=== PATIENT | male | born 1985 | race Caucasian/White ===

== ENCOUNTER 2019-10-04 08:04 | Emergency (ER) | payer OTHER ==
[2019-10-04] MEDS ORDERED: Sodium Chloride 0.9% 1,000 ML IV ONE (08:32)
[2019-10-04] MEDS ORDERED: Famotidine 20 MG/2 ML SDV IVPUSH ONE (08:34)
--- NOTE | 2019-10-04 09:08 | EDM.PDOC ---
ED HPI GENERAL MEDICAL PROBLEM - General Chief Complaint: Abdominal Pain Stated Complaint: ABDOMINAL PAIN Time Seen by Provider: 10/04/19 08:18 - History of Present Illness INITIAL COMMENTS - FREE TEXT/NARRATIVE: Generalized abdominal pain x3 days no bowel movement x3 days seen at [facility] and given Protonix patient with increased discomfort and at times radiating to the lower abdomen here for further evaluation, denies any prior surgical history denies any chronic medical condition. Patient admits to moderate alcohol intake. Denies tobacco use or drug use. No history of constipation in the past or history of peptic ulcer disease. Patient does not take any medication chronically. Denies any fever chills shortness of breath chest pain or cough. RUQ Pain Score (Numeric/FACES): 6 - Related Data Allergies Allergy/AdvReac Type Severity Reaction Status Date / Time amoxicillin Allergy Hives Verified 10/04/19 08:21 Home Meds: Home Meds Pantoprazole [ProTONIX] 40 mg PO DAILY 10/04/19 [History] Polyethylene Glycol 3350 [Miralax] 17 gm PO DAILY 7 Days #7 powd.pack 10/04/19 [ Rx] Past Medical History HEENT History: Reports: None Cardiovascular History: Reports: None Respiratory History: Reports: None Gastrointestinal History: Reports: None Genitourinary History: Reports: None Musculoskeletal History: Reports: None Neurological History: Reports: None Psychiatric History: Reports: None Endocrine/Metabolic History: Reports: None Hematologic History: Reports: None Immunologic History: Reports: None Oncologic (Cancer) History: Reports: None Dermatologic History: Reports: None - Infectious Disease History Infectious Disease History: Reports: None - Past Surgical History Head Surgeries/Procedures: Reports: None HEENT Surgical History: Reports: Eye Surgery Cardiovascular Surgical History: Reports: None Respiratory Surgical History: Reports: None GI Surgical History: Reports: None Male Surgical History: Reports: None Endocrine Surgical History: Reports: None Neurological Surgical History: Reports: None Musculoskeletal Surgical History: Reports: None Oncologic Surgical History: Reports: None Dermatological Surgical History: Reports: None Social & Family History - Family History Family Medical History: Noncontributory - Tobacco Use Smoking Status *Q: Never Smoker Second Hand Smoke Exposure: No - Caffeine Use Caffeine Use: Reports: None - Alcohol Use Days Per Week of Alcohol Use: 7 Number of Drinks Per Day: 4 Total Drinks Per Week: 28 - Recreational Drug Use Recreational Drug Use: Yes Recreational Drug Type: Reports: Cocaine, Marijuana/Hashish ED ROS GENERAL - Review of Systems Review Of Systems: See Below Constitutional: Reports: No Symptoms HEENT: Reports: No Symptoms Respiratory: Reports: No Symptoms Cardiovascular: Reports: No Symptoms GI/Abdominal: Reports: Abdominal Pain, Constipation, Distension, Nausea Musculoskeletal: Reports: No Symptoms Skin: Reports: No Symptoms Psychiatric: Reports: No Symptoms Hematologic/Lymphatic: Reports: No Symptoms Immunologic: Reports: No Symptoms ED EXAM, GI/ABD - Physical Exam Exam: See Below Exam Limited By: No Limitations General Appearance: Alert, WD/WN, No Apparent Distress Eyes: Bilateral: Normal Appearance, EOMI Ears: Normal External Exam, Normal Canal, Hearing Grossly Normal, Normal TMs Nose: Normal Inspection, Normal Mucosa, No Blood Throat/Mouth: Normal Inspection, Normal Lips, Normal Teeth, Normal Gums, Normal Oropharynx, Normal Voice, No Airway Compromise Head: Atraumatic, Normocephalic Neck: Normal Inspection, Supple, Non-Tender, Full Range of Motion Respiratory/Chest: No Respiratory Distress, Lungs Clear, Normal Breath Sounds Cardiovascular: Normal Peripheral Pulses, Regular Rate, Rhythm, No Edema, No Gallop, No JVD, No Murmur, No Rub GI/Abdominal Exam: Normal Bowel Sounds, Soft, Distended, Other (Mild tenderness right lower quadrant with no guarding rebound. No peritoneal sign. Green sign ). No: Guarding, Rigid Back Exam: Normal Inspection, Full Range of Motion, NT Extremities: Normal Inspection, Normal Range of Motion, Non-Tender, Normal Capillary Refill, No Pedal Edema Psychiatric: Normal Affect, Normal Mood Skin Exam: Warm, Dry, Intact, Normal Color, No Rash Lymphatic: No Adenopathy Course - Vital Signs Last Recorded V/S: Last Vital Signs Temp 96.8 F 10/04/19 08:21 Pulse 97 10/04/19 08:21 Resp 18 10/04/19 08:21 BP 129/85 10/04/19 08:21 Pulse Ox 95 10/04/19 08:21 - Orders/Labs/Meds Labs: Laboratory Tests 10/04/19 10/04/19 10/04/19 Range/Units 08:55 08:55 08:55 WBC 5.02 (4.0-11.0) K/uL RBC 4.88 (4.50-5.90) M/uL Hgb 16.5 (13.0-17.0) g/dL Hct 45.0 (38.0-50.0) % MCV 92.2 (80.0-98.0) fL MCH 33.8 H (27.0-32.0) pg MCHC 36.7 (31.0-37.0) g/dL RDW Std Deviation 38.8 (28.0-62.0) fl RDW Coeff of Martha 12 (11.0-15.0) % Plt Count 233 (150-400) K/uL MPV 10.30 (7.40-12.00) fL Neut % (Auto) 54.7 (48.0-80.0) % Lymph % (Auto) 31.1 (16.0-40.0) % Morrow % (Auto) 8.4 (0.0-15.0) % Eos % (Auto) 5.2 (0.0-7.0) % Baso % (Auto) 0.6 (0.0-1.5) % Neut # (Auto) 2.8 (1.4-5.7) K/uL Lymph # (Auto) 1.6 (0.6-2.4) K/uL Morrow # (Auto) 0.4 (0.0-0.8) K/uL Eos # (Auto) 0.3 (0.0-0.7) K/uL Baso # (Auto) 0.0 (0.0-0.1) K/uL Nucleated RBC % 0.0 /100WBC Nucleated RBCs # 0 K/uL INR 1.05 Sodium 142 (136-148) mmol/L Potassium 3.7 (3.5-5.1) mmol/L Chloride 105 (98-107) mmol/L Carbon Dioxide 28.1 (21.0-32.0) mmol/L BUN 8 (7.0-18.0) mg/dL Creatinine 0.9 (0.8-1.3) mg/dL Est Cr Clr Drug Dosing 108.78 mL/min Estimated GFR (MDRD) > 60.0 ml/min Glucose 87 (74-106) mg/dL Calcium 8.7 (8.5-10.1) mg/dL Total Bilirubin 0.8 (0.2-1.0) mg/dL AST 25 (15-37) IU/L ALT 42 (14-63) IU/L Alkaline Phosphatase 63 (46-116) U/L Total Protein 7.6 (6.4-8.2) g/dL Albumin 3.9 (3.4-5.0) g/dL Globulin 3.7 (2.6-4.0) g/dL Albumin/Globulin Ratio 1.1 (0.9-1.6) Lipase 132 (73-393) U/L Meds: Medications Discontinued Medications Generic Name Dose Route Start Last Admin Trade Name Freq PRN Reason Stop Dose Admin Famotidine 20 mg 10/04/19 08:34 10/04/19 08:54 Pepcid IVPUSH 10/04/19 08:35 20 mg ONETIME ONE Administration Sodium Chloride 1,000 mls @ 999 mls/hr 10/04/19 08:32 10/04/19 08:54 Normal Saline IV 10/04/19 09:32 999 mls/hr .Bolus ONE Administration Departure - Departure Time of Disposition: 11:13 Disposition: Home, Self-Care 01 Condition: Good Clinical Impression: Abdominal pain Qualifiers: Abdominal location: generalized Qualified Code(s): R10.84 - Generalized abdominal pain - Discharge Information Instructions: Abdominal Pain, Adult, [id number], Constipation, Adult, Easy-to -Read Referrals: PCP,None [Primary Care Provider] - Forms: ED Department Discharge Sepsis Event Note - Evaluation Sepsis Screening Result: No Definite Risk - Focused Exam Vital Signs: Vital Signs Temp Pulse Resp BP Pulse Ox 10/04/19 08:21 96.8 F 97 18 129/85 95 Date Exam was Performed: 10/04/19 Time Exam was Performed: 11:13
[2019-10-04 09:32] LABS: BLOOD UREA NITROGEN,BUN 8 mg/dL (7.0-18.0); CARBON DIOXIDE,CO2 28.1 mmol/L (21.0-32.0); CHLORIDE,CL 105 mmol/L (98-107); GLUCOSE RANDOM 87 mg/dL (74-106); LIPASE 132 U/L (73-393); POTASSIUM,K 3.7 mmol/L (3.5-5.1); SODIUM,NA 142 mmol/L (136-148)
--- NOTE | 2019-10-04 10:43 | CT ---
CT abdomen and pelvis Technique: Multiple axial sections were obtained from above the dome of the diaphragm inferiorly through the pubic symphysis. Intravenous contrast was utilized. No oral contrast has been given. Comparison: No prior abdominal imaging is available. Findings: Visualized lung bases show nothing acute. Liver contains no focal parenchymal abnormality. Spleen appears within normal limits. Gallbladder contains no calcified gallstones. Adrenal glands show no nodule. Kidneys show symmetric contrast enhancement. Minimal low-density lesion is noted within the upper right kidney and within the central left kidney most likely due to minimal cysts. No additional abnormality is appreciated within the kidneys. Pancreas appears within normal limits. Aorta shows no aneurysm. No retroperitoneal adenopathy or mesenteric abnormalities are seen. Appendix is seen which is normal in size. No pelvic mass or adenopathy is seen. No free fluid or inflammatory change is seen. No bowel dilatation is identified. Bone window settings were reviewed. No acute osseous finding is seen. Impression: 1. Findings which are believed to be incidental as noted above. 2. Nothing acute is appreciated on CT study of the abdomen and pelvis. Diagnostic code #2 This report was dictated in [place] Standard Time
[2019-10-04] MEDS ORDERED: Iopamidol 755 MG/ML 500 ML Multipack Bottle IVPUSH STA (17:54)
== END 2019-10-04 11:32 | disposition home or self-care (01) ==
LOC: MW.ED 08:04
DX: R10.84 Generalized abdominal pain (principal); R10.31 Right lower quadrant pain; Z88.1 Allergy status to other antibiotic agents; Z79.899 Other long term (current) drug therapy
CPT/HCPCS: 36415; 74177; 80053; 83690; 85025; 85610; 96361; 96374; 99284; J7030; Q9967; S0028; 99283; J3490

== ENCOUNTER 2020-12-17 22:16 | Emergency (ER) | payer SELFPAY ==
[2020-12-17] MEDS ORDERED: Ondansetron 4 MG/2 ML SDV IVPUSH ONE (22:17)
[2020-12-17] MEDS ORDERED: Albuterol 6.7 GM Inhaler INH ONE (22:18)
[2020-12-17] MEDS ORDERED: Sodium Chloride 0.9% 1,000 ML IV ONE (22:19)
[2020-12-17] MEDS ORDERED: Sodium Chloride 0.9% 2.5 ML Syringe FLUSH PRN (22:19)
[2020-12-17] MEDS ORDERED: Sodium Chloride 0.9% 10 ML Syringe FLUSH PRN (22:19)
[2020-12-17] MEDS ORDERED: Albuterol 8 GM Inhaler INH ONE (22:20)
[2020-12-17] MEDS ORDERED: methylPREDNISolone Sodium Succinate 125 MG/2 ML SDV IVPUSH STA (22:20)
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
== END 2020-12-17 23:17 | disposition home or self-care (01) ==
LOC: MW.ED 22:16
DX: T59.811A Toxic effect of smoke, accidental (unintentional), initial encounter (principal); J70.5 Respiratory conditions due to smoke inhalation; Z88.0 Allergy status to penicillin
CPT/HCPCS: 96374; 96375; 99284; A9270; J2405; J2930; J7030; 99283

== ENCOUNTER 2021-04-23 00:45 | Emergency (ER) | payer SELFPAY ==
--- NOTE | 2021-04-23 01:03 | EDM.PDOC ---
ED HPI GENERAL MEDICAL PROBLEM - General Chief Complaint: Chest Pain Stated Complaint: CHEST PAIN Time Seen by Provider: 04/23/21 00:48 Source of Information: Reports: Patient History Limitations: Reports: No Limitations - History of Present Illness INITIAL COMMENTS - FREE TEXT/NARRATIVE: Patient is a 35-year-old male presents today for left-sided chest pain. Pain started about hour ago. The pain does not radiate not made worse or better with anything. Patient states that he was having a few drinks tonight right before the pain started. Patient was given aspirin by EMS. He states the pain subsided on its own but still lingering there. Patient denies any other complaints of shortness of breath fever chills nausea vomiting. chest pain Pain Score (Numeric/FACES): 3 - Related Data Allergies Allergy/AdvReac Type Severity Reaction Status Date / Time amoxicillin Allergy Hives Verified 04/23/21 00:50 Home Meds: Home Meds . [No Known Home Meds] 12/17/20 [History] Past Medical History - Past Health History Medical/Surgical History: Denies Medical/Surgical History HEENT History: Reports: None Cardiovascular History: Reports: None Respiratory History: Reports: None Gastrointestinal History: Reports: None Genitourinary History: Reports: None Musculoskeletal History: Reports: None Neurological History: Reports: None Psychiatric History: Reports: None Endocrine/Metabolic History: Reports: None Insulin Pump Model and Sorting Machine Operator: None Hematologic History: Reports: None Immunologic History: Reports: None Oncologic (Cancer) History: Reports: None Dermatologic History: Reports: None - Infectious Disease History Infectious Disease History: Reports: Chicken Pox - Past Surgical History Head Surgeries/Procedures: Reports: None HEENT Surgical History: Reports: Eye Surgery Cardiovascular Surgical History: Reports: None Respiratory Surgical History: Reports: None GI Surgical History: Reports: None Male Surgical History: Reports: None Endocrine Surgical History: Reports: None Neurological Surgical History: Reports: None Musculoskeletal Surgical History: Reports: None Oncologic Surgical History: Reports: None Dermatological Surgical History: Reports: None Social & Family History - Family History Family Medical History: No Pertinent Family History - Caffeine Use Caffeine Use: Reports: Coffee - Recreational Drug Use Recreational Drug Use: No ED ROS GENERAL - Review of Systems Review Of Systems: See Below Constitutional: Reports: No Symptoms HEENT: Reports: No Symptoms Respiratory: Reports: No Symptoms Cardiovascular: Reports: Chest Pain Endocrine: Reports: No Symptoms GI/Abdominal: Reports: No Symptoms : Reports: No Symptoms Musculoskeletal: Reports: No Symptoms Skin: Reports: No Symptoms Neurological: Reports: No Symptoms Psychiatric: Reports: No Symptoms Hematologic/Lymphatic: Reports: No Symptoms Immunologic: Reports: No Symptoms ED EXAM, GENERAL - Physical Exam Exam: See Below Exam Limited By: No Limitations General Appearance: Alert, WD/WN, No Apparent Distress Eye Exam: Bilateral Eye: EOMI, PERRL Head: Atraumatic Respiratory/Chest: No Respiratory Distress, Lungs Clear, Normal Breath Sounds Cardiovascular: Normal Peripheral Pulses, Regular Rate, Rhythm, No Edema Peripheral Pulses: 2+: Radial (L), Radial (R) GI/Abdominal: Normal Bowel Sounds, Soft, Non-Tender Extremities: Normal Inspection, Normal Range of Motion Neurological: Alert, Oriented, CN II-XII Intact, Normal Cognition, Normal Gait #1 Interpretation EKG Date: 04/23/21 Time: 00:42 Rhythm: NSR Rate (Beats/Min): 90 QRS: LBBB ST-T: Other Course - Vital Signs Last Recorded V/S: Last Vital Signs Temp 97.8 F 04/23/21 00:45 Pulse 70 04/23/21 00:45 Resp 18 04/23/21 00:45 BP 146/83 H 04/23/21 00:45 Pulse Ox 97 04/23/21 00:45 - Orders/Labs/Meds Orders: Active Orders 24 hr Category Date Time Status EKG Documentation Completion [RC] STAT Care 04/23/21 00:46 Active Labs: Laboratory Tests 04/23/21 04/23/21 04/23/21 Range/Units 00:45 00:45 00:45 WBC 8.18 (4.0-11.0) K/uL RBC 4.69 (4.50-5.90) M/uL Hgb 16.2 (13.0-17.0) g/dL Hct 43.6 (38.0-50.0) % MCV 93.0 (80.0-98.0) fL MCH 34.5 H (27.0-32.0) pg MCHC 37.2 H (31.0-37.0) g/dL RDW Std Deviation 40.2 (28.0-62.0) fl RDW Coeff of Martha 12 (11.0-15.0) % Plt Count 251 (150-400) K/uL MPV 10.80 (7.40-12.00) fL Neut % (Auto) 50.3 (48.0-80.0) % Lymph % (Auto) 40.2 H (16.0-40.0) % [place] % (Auto) 7.6 (0.0-15.0) % Eos % (Auto) 1.5 (0.0-7.0) % Baso % (Auto) 0.4 (0.0-1.5) % Neut # (Auto) 4.1 (1.4-5.7) K/uL Lymph # (Auto) 3.3 H (0.6-2.4) K/uL [place] # (Auto) 0.6 (0.0-0.8) K/uL Eos # (Auto) 0.1 (0.0-0.7) K/uL Baso # (Auto) 0.0 (0.0-0.1) K/uL Nucleated RBC % 0.0 /100WBC Nucleated RBCs # 0 K/uL Sodium 141 (136-148) mmol/L Potassium 2.8 L (3.5-5.1) mmol/L Chloride 103 (98-107) mmol/L Carbon Dioxide 21.3 (21.0-32.0) mmol/L BUN 6 L (7.0-18.0) mg/dL Creatinine 0.8 (0.8-1.3) mg/dL Est Cr Clr Drug Dosing 126.25 mL/min Estimated GFR (MDRD) > 60.0 ml/min Glucose 103 (74-106) mg/dL Calcium 8.5 (8.5-10.1) mg/dL Magnesium 2.5 H (1.8-2.4) mg/dL Creatine Kinase 153 (26-308) U/L Troponin I < 0.050 (0.000-0.056) ng/mL Lipase 171 (73-393) U/L Meds: Medications Discontinued Medications Generic Name Dose Route Start Last Admin Trade Name Freq PRN Reason Stop Dose Admin Potassium Chloride 40 meq 04/23/21 02:33 Potassium Chloride 10% 20 Meq/15 Ml Soln 15 Ml Ud Cup PO 04/23/21 02:34 ONETIME ONE Potassium Chloride Confirm 04/23/21 02:46 04/23/21 02:51 Potassium Chloride 10% 20 Meq/15 Ml Soln 30 Ml Ud Cup Administered 04/23/21 02:47 Not Given Dose 40 meq .ROUTE .STK-MED ONE Potassium Chloride 40 meq 04/23/21 02:50 04/23/21 02:59 Potassium Chloride 10% 20 Meq/15 Ml Soln 15 Ml Ud Cup PO 04/23/21 02:51 Not Given ONETIME ONE - Re-Assessments/Exams Free Text/Narrative Re-Assessment/Exam: 04/23/21 03:00 Patient EKG reviewed and he is made aware of the bundle branch block and to follow-up with cardiology. Patient vitals are stable patient was well will be discharged home. Departure - Departure Time of Disposition: 03:00 Disposition: Home, Self-Care 01 Condition: Good Clinical Impression: Chest pain Instructions: Nonspecific Chest Pain, Adult, [id number] Forms: ED Department Discharge Additional Instructions: The following information is given to patients seen in the emergency department who are being discharged to home. This information is to outline your options for follow-up care. We provide all patients seen in our emergency department with a follow-up referral. The need for follow-up, as well as the timing and circumstances, are variable depending upon the specifics of your emergency department visit. If you don't have a primary care physician on staff, we will provide you with a referral. We always advise you to contact your personal physician following an emergency department visit to inform them of the circumstance of the visit and for follow-up with them and/or the need for any referrals to a consulting specialist. The emergency department will also refer you to a specialist when appropriate. This referral assures that you have the opportunity for follow-up care with a specialist. All of these measure are taken in an effort to provide you with optimal care, which includes your follow-up. Under all circumstances we always encourage you to contact your private physician who remains a resource for coordinating your care. When calling for f ollow-up care, please make the office aware that this follow-up is from your recent emergency room visit. If for any reason you are refused follow-up, please contact the [facility] Emergency Department at and asked to speak to the emergency department charge nurse. Please follow up with your primary care physician. If you do not have a primary care physician, see below: Cardiac Rehabilitation at [address] [id number] You were seen today for chest pain. You has some abnormalities of EKG. We would like for you to follow-up with cardiology above is the number for you to call to make an appointment. If you have any other concerning signs or symptoms please return to the ED immediately. Sepsis Event Note (ED) - Focused Exam Vital Signs: Vital Signs Temp Pulse Resp BP Pulse Ox 04/23/21 00:45 97.8 F 70 18 146/83 H 97 - My Orders Last 24 Hours: My Active Orders 04/23/21 00:46 EKG Documentation Completion [RC] STAT - Assessment/Plan Last 24 Hours: My Active Orders 04/23/21 00:46 EKG Documentation Completion [RC] STAT Plan: Patient is a 35-year-old male presents today for left-sided chest pain. She has heart score 1 did EKG changes. Does not have any ST elevation but does have a left bundle branch block the possibly be new will compared to old. Will obtain EKG labs and reassess.
[2021-04-23 01:32] LABS: BLOOD UREA NITROGEN,BUN 6 mg/dL (7.0-18.0); CARBON DIOXIDE,CO2 21.3 mmol/L (21.0-32.0); CHLORIDE,CL 103 mmol/L (98-107); GLUCOSE RANDOM 103 mg/dL (74-106); LIPASE 171 U/L (73-393); POTASSIUM,K 2.8 mmol/L (3.5-5.1); SODIUM,NA 141 mmol/L (136-148)
[2021-04-23] MEDS ORDERED: Potassium Chloride 10% 20 MEQ/15 ML Soln 15 ML UD Cup PO ONE ×2 (02:33→02:50)
--- NOTE | 2021-04-23 02:44 | CR ---
Indication: Chest pain Technique: Chest 2 views Comparison: None Findings/Impression: Cardiovascular and mediastinum: Heart size and vasculature are normal in caliber and appearance. Mediastinum is within normal limits. Lungs and pleural spaces: Lungs are clear. No sign of infiltrate or mass. No sign of pleural effusion. No pneumothorax. Bones and soft tissues: No significant findings. Dictated by Zane Schaeffer MD @ 04/23/2021 2:44:[address] Zane Schaeffer @ Apr 23 2021 2:44AM
[2021-04-23] MEDS ORDERED: Potassium Chloride 10% 20 MEQ/15 ML Soln 30 ML UD Cup ONE (02:46)
== END 2021-04-23 03:10 | disposition home or self-care (01) ==
LOC: MW.ED 00:45
DX: R07.9 Chest pain, unspecified (principal); Z88.0 Allergy status to penicillin
CPT/HCPCS: 36415; 71046; 80048; 82550; 83690; 83735; 84484; 85025; 93005; 99285; A9270